=== PATIENT | female | born 1980 | race Hispanic/Latino ===

== ENCOUNTER 2018-01-23 16:54 | Emergency (ER) | payer MEDICAID ==
[2018-01-23 18:01] LABS: Basophils # (Auto) 0.1 K/mm3 (0.0-0.1); Basophils % (Auto) 0.7 % (0.0-1.8); Eosinophils # (Auto) 0.1 K/mm3 (0.0-0.4); Eosinophils % (Auto) 1.1 % (0.0-4.3); Hematocrit 39.9 % (30.3-42.9); Hemoglobin 13.9 gm/dl (10.1-14.3); Lymphocytes # (Auto) 2.8 K/mm3 (1.2-5.4); Lymphocytes % (Auto) 26.7 % (13.4-35.0); Mean Corpuscular HGB Conc 35 % (30-34); Mean Corpuscular Hemoglobin 32 pg (28-32); Mean Corpuscular Volume 91 fl (79-97); Monocytes # (Auto) 1.3 K/mm3 (0.0-0.8); Monocytes % (Auto) 12.2 % (0.0-7.3); Platelet Count 375 K/mm3 (140-440); Red Cell Distribution Width 13.3 % (13.2-15.2)
[2018-01-23 18:13] LABS: BUN/Creatinine Ratio 9; Blood Urea Nitrogen 6 mg/dL (7-17); Calcium 9.3 mg/dL (8.4-10.2); Hemolysis Index 3
[2018-01-23 18:23] LABS: Bacteria,Urine 1+ /HPF (Negative); Bilirubin,Urine NEG (Negative); Blood,Urine LG (Negative); Color,Urine Yellow (Yellow); Hyaline Casts,Urine 3 /LPF; Protein,Urine <15 mg/dL mg/dL (Negative); Urobilinogen,Urine < 2.0 mg/dL (<2.0)
[2018-01-23 18:44] LABS: Benzodiazepines Screen,Urine PRESUMPTIVE NEGATIVE; Cannabinoid Screen,Urine PRESUMPTIVE NEGATIVE; Cocaine Screen,Urine PRESUMPTIVE NEGATIVE; Methadone Screen,Urine PRESUMPTIVE NEGATIVE; Opiate Screen,Urine PRESUMPTIVE NEGATIVE
[2018-01-23 18:57] LABS: Amphetamine Screen,Urine PRESUMPTIVE POSITIVE
[2018-01-23] MEDS ORDERED: ATIVAN PO ONE (22:44)
--- NOTE | 2018-01-23 22:44 | Emergency Department Report ---
ED Psych HPI - General Chief Complaint: Psych Stated Complaint: ams Time Seen by Provider: 01/23/18 21:26 Source: patient Mode of arrival: Ambulatory Limitations: Other - History of Present Illness Initial Comments: 37 year old female with a past medical history of ADHD, manic depressive disorder, and if the disorder presents to the hospital hyperverbal, delusional, and with some psychosis. [place] and hitchhiked here. She does have family here in [place] and her sister expressed concerns about her current mental status. Patient denies any physical complaints. She denies that she is taking current psychiatric medication. She denies substance abuse. UDS is positive for amphetamines but states she has been on Adderall in the recent past immediately still in her system. Patient is alert and oriented 3 without suicidal homicidal ideation. - Related Data Allergies Allergy/AdvReac Type Severity Reaction Status Date / Time sesame seed Allergy Unknown Verified 01/23/18 17:13 soy Allergy Unknown Verified 01/23/18 17:13 ED Review of Systems ROS: Stated complaint: ams Other details as noted in HPI Comment: All other systems reviewed and negative ED Past Medical Hx - Past Medical History Previous Medical History?: Yes Hx Psychiatric Treatment: Yes (ADHD, Bipolar, Manic depression) Additional medical history: sleep disorder - Surgical History Past Surgical History?: Yes Additional Surgical History: Nasal - Social History Smoking Status: Current Every Day Smoker Substance Use Type: Alcohol, Methamphetamines ED Physical Exam - General Limitations: No Limitations - Other Other exam information: General: No limitations Head exam: Atraumatic, normocephalic Eyes exam: Normal appearance, pupils equal reactive to light, extraocular movements intact ENT: Moist mucous membrane, normal oropharynx Neck exam: Normal inspection, full range of motion, no meningismus nontender Respiratory exam: Clear to auscultation bilateral, no wheezes, rales, crackles Cardiovascular: Mild tachycardia Abdomen: Soft, nondistended, and nontender, with normal bowel sounds, no rebound, or guarding Extremity: Full range of motion normal inspection no deformity Back: Normal Inspection, full range of motion, no tenderness Neurologic: Alert, oriented x3, cranial nerves intact, no motor or sensory deficit Psychiatric: Tangential thoughts, hyperverbal, delusions, pacing around the room Skin: Warm, dry, intact ED Course Vital Signs 01/23/18 01/23/18 17:14 22:03 Temperature 99.3 F 98.7 F Pulse Rate 110 H 105 H Respiratory 18 20 Rate Blood Pressure 122/87 Blood Pressure 119/74 [Right] O2 Sat by Pulse 96 96 Oximetry - Consultations Consultation #1: 01/23/18 [facility] requested for placement ED Medical Decision Making - Lab Data Result diagrams: 01/23/18 17:45 01/23/18 17:45 - Medical Decision Making Manic behavior with delusions and psychosis pt given ativan 1 mg po in ed 1013 and transfer form sign uds + for amphetamines ? aderall use Patient medically clear for psychiatric transfer - Differential Diagnosis psychosis, substance abuse, manic episode, ADHD Critical Care Time: No Critical care attestation.: If time is entered above; I have spent that time in minutes in the direct care of this critically ill patient, excluding procedure time. ED Disposition Clinical Impression: Manic behavior, Hyperverbal speech, Delusions, Medical clearance for psychiatric admission Disposition: [id number] PSY HOSP/PSY UNIT Is pt being admited?: No Condition: Stable Time of Disposition: 23:24 (awaiting acceptance)
[2018-01-24 15:15] VITALS: BP 117/81
== END 2018-01-24 15:17 ==
LOC: ED 16:54
DX: F30.2 Manic episode, severe with psychotic symptoms (principal); F90.9 Attention-deficit hyperactivity disorder, unspecified type; F17.200 Nicotine dependence, unspecified, uncomplicated; F15.10 Other stimulant abuse, uncomplicated; Z91.018 Allergy to other foods; Z79.899 Other long term (current) drug therapy
CPT/HCPCS: 36415; 80048; 80307; 81001; 82550; 84703; 85025; 99285; G0480; 80320